=== PATIENT | male | born 1955 | race Caucasian/White ===

== ENCOUNTER 2021-11-13 16:29 | Emergency (ER) | payer MEDICARE, OTHER ==
[2021-11-13 19:07] LABS: HEMOGLOBIN 15.4 gm/dl (14.0-17.5); RED BLOOD COUNT 5.09 M/UL (4.20-5.50); WHITE BLOOD COUNT 11.1 K/UL (4.5-11.0)
== END 2021-11-14 17:48 | disposition home or self-care (01) ==
LOC: ER1 16:29
PROVIDERS: Emergency Medicine
DX: F03.90 Unspecified dementia, unspecified severity, without behavioral disturbance, psychotic disturbance, mood disturbance, and anxiety (principal); R53.81 Other malaise; J32.0 Chronic maxillary sinusitis; M48.07 Spinal stenosis, lumbosacral region; R73.9 Hyperglycemia, unspecified
CPT/HCPCS: 70450; 71045; 72125; 72128; 72131; 80053; 81001; 85025; 99284